=== PATIENT | female | born 1975 | race Caucasian/White ===

== ENCOUNTER 2020-12-25 18:53 | Day surgery (SDC) | payer BC, OTHER ==
[~2020-12-25] VITALS: Ht 162.6 cm; Wt 126.0 kg
[2020-12-25 19:18] VITALS: BP_SYST 135; BP_SYST 138; BP_DIAS 67; BP_DIAS 78; BP_DIAS 89
[2020-12-25 19:42] LABS: BASOPHILS % (AUTO) 0 % (0-10); EOSINOPHILS % (AUTO) 2 % (0-10); HEMATOCRIT 25 % (35-52); LYMPHOCYTES % (AUTO) 10 % (12-44); MEAN CORPUSCULAR HEMOGLOBIN 20 PG (25-34); MEAN CORPUSCULAR HGB CONC 28 G/DL (32-36); MEAN CORPUSCULAR VOLUME 71 FL (80-99); MEAN PLATELET VOLUME 9.1 FL (7.4-10.4); MONOCYTES % (AUTO) 5 % (0-12); NEUTROPHILS % (AUTO) 83 % (42-75); PLATELET COUNT 287 10^3/uL (130-400); WHITE BLOOD COUNT 11.3 10^3/uL (4.3-11.0)
[2020-12-25 19:43] LABS: EOSINOPHILS # (AUTO) 0.2 10^3/uL (0.0-0.3); LYMPHOCYTES # (AUTO) 1.1 X 10^3 (1.0-4.0); MONOCYTES # (AUTO) 0.6 X 10^3 (0.0-1.0); NEUTROPHILS # (AUTO) 9.4 X 10^3 (1.8-7.8)
[2020-12-25 19:44] LABS: HEMOGLOBIN 6.9 G/DL (11.5-16.0)
[2020-12-25 19:47] LABS: ALBUMIN 3.6 GM/DL (3.2-4.5); BILIRUBIN,TOTAL 0.4 MG/DL (0.1-1.0); CALCIUM 9.3 MG/DL (8.5-10.1); CREATININE SERUM 0.69 MG/DL (0.60-1.30); POTASSIUM 4.4 MMOL/L (3.6-5.0); TOTAL PROTEIN 6.4 GM/DL (6.4-8.2)
--- NOTE | 2020-12-25 19:53 | ED Syncope ---
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 Pt then states she vomited and also hit her head when she passed out. Pt denies loc and is alert and oriented on arrival Source of Information: Patient Exam Limitations: No Limitations History of Present Illness Date Seen by Provider: Dec 25, 2020 Time Seen by Provider: 19:05 Initial Comments Patient is a 45-year-old female who presents to the emergency department today with a chief complaint of a passing out spell. Patient states that she had gone swimming with her kids around 2:00 this afternoon and when she came home she had the urge to have a bowel movement. She said she had a little bit of an upset stomach. When she was getting up off of the toilet she became very lightheaded more nauseous and vomited and passed out hitting her head on the wall. Patient is unsure how long she was unconscious. She has not done this in years. She denies abdominal pain but states that she has a really "big hiatal hernia" and has had acid reflux for years. She is not currently on acid reducers and has not been on them for months. Patient states that her vomit did look like "coffee grounds". Patient denies any recent black or bloody stools. She tells me that she has a significantly narrowed esophagus and recently had dilation in [place] about 2 weeks ago. 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 Patient also endorses very heavy menstrual cycles. She is currently spotting and has been on her menstrual cycle the last week or so. She states she has them monthly. Last time she saw plant supervisor was about 6 or 7 years ago with the of her last child. No recent fevers chills, cough or congestion. She is not Covid vaccinated. All other review of systems reviewed and negative except as stated above. Timing/Prior Episodes: No Prior History Symptoms Prior to Episode: Lightheadedness, Nausea Precipitating Factors: Sitting Loss of Consciousness: Unsure Current Symptoms: Back to Normal Allergies and Home Medications Allergies Coded Allergies: No Known Drug Allergies (Unverified , 12/25/20) Home Medications Albuterol Sulfate 1 Puff Puff, 2 PUFF IH Q6H PRN for SHORTNESS OF BREATH, (Reported) Last Action: Reviewed Cetirizine HCl 10 Mg Tablet, 10 MG PO DAILY PRN for ALLERGY SYMPTOMS, (Reported) Last Action: Reviewed Cholecalciferol (Vitamin D3) 10 Mcg Tab.chew, 50 MCG PO DAILY, (Reported) TAKES 5 (10MCG) CHEWABLES DAILY Last Action: Reviewed Multivit-Min/Ascorbic/Herb 124 1 Each Effpowdpkt, 1 EACH PO DAILY, (Reported) Last Action: Reviewed Omeprazole 20 Mg Tab.rap.dr, 20 MG PO DAILY PRN for HEARTBURN, (Reported) Last Action: Reviewed Zinc Gluconate 30 Mg Tablet, 60 MG PO DAILY, (Reported) Last Action: Reviewed Patient Home Medication List Home Medication List Reviewed: Yes Review of Systems Constitutional: see HPI EENTM: no symptoms reported Respiratory: no symptoms reported Cardiovascular: no symptoms reported Gastrointestinal: nausea Genitourinary: no symptoms reported : No Musculoskeletal: no symptoms reported Skin: no symptoms reported Psychiatric/Neurological: No Symptoms Reported All Other Systems Reviewed Negative Unless Noted: Yes Past Hzggcaz-Hhqyey-Ycgswz Hx Patient Social History Tobacco Use?: No Use of E-Cig and/or Vaping dev: No Substance use?: No Alcohol Use?: No Pt feels they are or have been: No Physical Exam Vital Signs Vital Signs - First Documented 12/25/20 18:55 Temp 36.0 Pulse 97 Resp 18 B/P (MAP) 137/74 (95) Pulse Ox 100 O2 Delivery Room Air Capillary Refill : Less Than 3 Seconds Height, Weight, BMI Height: '" Weight: lbs. oz. kg; BMI Method: General Appearance: No Apparent Distress, WD/WN HEENT: PERRL/EOMI, Normal ENT Inspection Neck: Normal Inspection, Non Tender Cardiovascular: Regular Rate, Rhythm Respiratory: Lungs Clear, Normal Breath Sounds, No Accessory Muscle Use, No Respiratory Distress Gastrointestinal: Normal Bowel Sounds, Non Tender, Soft Extremities: Normal Inspection, Normal Range of Motion, Non Tender, No Calf Tenderness Neurologic/Psychiatric: Alert, Oriented x3, No Motor/Sensory Deficits, Normal Mood/Affect Cranial Nerves: PERRL Motor/Sensory: No Motor Deficit, No Sensory Deficit Skin: Normal Color, Warm/Dry Progress/Results/Core Measures Results/Orders Lab Results Laboratory Tests Test 12/25/20 19:07 8/3/21 20:58 Range/Units White Blood Count 11.3 H 4.3-11.0 10^3/uL Red Blood Count 3.47 L 4.35-5.85 10^6/uL Hemoglobin 6.9 *L 11.5-16.0 G/DL Hematocrit 25 L 35-52 % Mean Corpuscular Volume 71 L 80-99 FL Mean Corpuscular Hemoglobin 20 L 25-34 PG Mean Corpuscular Hemoglobin Concent 28 L 32-36 G/DL Red Cell Distribution Width 16.8 H 10.0-14.5 % Platelet Count 287 130-400 10^3/uL Mean Platelet Volume 9.1 7.4-10.4 FL Immature Granulocyte % (Auto) 0 % Neutrophils (%) (Auto) 83 H 42-75 % Lymphocytes (%) (Auto) 10 L 12-44 % Monocytes (%) (Auto) 5 0-12 % Eosinophils (%) (Auto) 2 0-10 % Basophils (%) (Auto) 0 0-10 % Neutrophils # (Auto) 9.4 H 1.8-7.8 X 10^3 Lymphocytes # (Auto) 1.1 1.0-4.0 X 10^3 Monocytes # (Auto) 0.6 0.0-1.0 X 10^3 Eosinophils # (Auto) 0.2 0.0-0.3 10^3/uL Basophils # (Auto) 0.0 0.0-0.1 10^3/uL Immature Granulocyte # (Auto) 0.0 0.0-0.1 10^3/uL Neutrophils % (Manual) 83 % Lymphocytes % (Manual) 9 % Monocytes % (Manual) 4 % Eosinophils % (Manual) 1 % Band Neutrophils 2 % Atypical Lymphocytes 1 % Smudge Cells SLIGHT Percent Immature Platelet Fraction 2.3 0.0-7.6 % Polychromasia SLIGHT Hypochromasia SLIGHT Poikilocytosis SLIGHT Anisocytosis SLIGHT Microcytosis SLIGHT Elliptocytes SLIGHT Absolute Reticulocyte Count 34 24-90 10e9/uL Percent Reticulocyte Count 3.39 H 0.50-2.40 % Sodium Level 135 135-145 MMOL/L Potassium Level 4.4 3.6-5.0 MMOL/L Chloride Level 104 98-107 MMOL/L Carbon Dioxide Level 22 21-32 MMOL/L Anion Gap 9 5-14 MMOL/L Blood Urea Nitrogen 12 7-18 MG/DL Creatinine 0.69 0.60-1.30 MG/DL Estimat Glomerular Filtration Rate 92 BUN/Creatinine Ratio 17 Glucose Level 112 H 70-105 MG/DL Calcium Level 9.3 8.5-10.1 MG/DL Corrected Calcium 9.6 8.5-10.1 MG/DL Total Bilirubin 0.4 0.1-1.0 MG/DL Aspartate Amino Transf (AST/SGOT) 13 5-34 U/L Alanine Aminotransferase (ALT/SGPT) 14 0-55 U/L Alkaline Phosphatase 74 40-136 U/L Total Protein 6.4 6.4-8.2 GM/DL Albumin 3.6 3.2-4.5 GM/DL SARS-CoV-2 RNA (RT-PCR) Not Detected Not Detecte Micro Results Microbiology 12/25/20 MRSA Screen - Final, Complete MRSA not isolated My Orders Orders - DELMER HASTINGS MD Pantoprazole Injection (Protonix Injecti (12/25/20 20:15) Type And Screen (12/25/20 20:21) Red Cells Leukocytes Reduced (12/25/20 20:21) Ed Iv/Invasive Line Start (12/25/20 20:43) Iron Tibc %Sat & Ferritin (12/25/20 20:45) Reticulocyte Count (12/25/20 20:45) Medications Given in ED Vital Signs/I&O 12/25/20 12/25/20 12/25/20 12/25/20 18:55 19:18 20:44 22:10 Temp 36.0 Pulse 97 88 97 103 120 Resp 18 16 B/P (MAP) 137/74 (95) 138/78 (98) 151/85 135/67 (89) 135/89 (104) Pulse Ox 100 100 97 O2 Delivery Room Air Room Air Room Air Blood Pressure Mean: 104 Progress Progress Note : Time: 20:07 Progress Note Hemoccult positive on digital rectal exam Initial ECG Impression Date: Dec 25, 2020 Initial ECG Impression Time: 19:05 Initial ECG Rate: 90 Initial ECG Rhythm: Normal Sinus Initial ECG Intervals: Normal Initial ECG Impression: Normal Departure Communication (Admissions) Time/Spoke to Admitting Phy: 20:[address] Merino who accepts the patient for admission Time/Spoke to Consulting Phy: 20:[address] Nassar who recommends Protonix 40 mg IV twice daily clear liquids for now and then n.p.o. after midnight for probable EGD tomorrow afternoon. He did not recommend colon prep at this time. Impression Primary Impression: Syncope Qualified Codes: R55 - Syncope and collapse Additional Impressions: Anemia Qualified Codes: D64.9 - Anemia, unspecified GIB (gastrointestinal bleeding) Qualified Codes: K92.2 - Gastrointestinal hemorrhage, unspecified Disposition: ADMITTED INPATIENT Condition: Stable Admissions Decision to Admit Reason: Admit from ER (General) Decision to Admit/Date: Dec 25, 2020 Time/Decision to Admit Time: 20:08 Departure-Patient Inst. Referrals: LAURENT MAGANA MD (PCP/Family) Primary Care Physician DELMER HASTINGS MD Dec 25, 2020 19:53
[2020-12-25 20:10] LABS: ATYPICAL LYMPHOCYTES 1 %; BAND NEUTROPHILS 2 %; EOSINOPHILS % (MANUAL) 1 %; LYMPHOCYTES % (MANUAL) 9 %; MONOCYTES % (MANUAL) 4 %; NEUTROPHILS % (MANUAL) 83 %
[2020-12-25 20:11] LABS: ANISOCYTOSIS SLIGHT; ELLIPT/OVALOCYTES SLIGHT; HYPOCHROMASIA SLIGHT; MICROCYTOSIS SLIGHT; POIKILOCYTOSIS SLIGHT; POLYCHROMASIA SLIGHT; SMUDGE CELLS SLIGHT
[2020-12-25] MEDS ORDERED: PANTOPRAZOLE 40 MG (PROTONIX) VIAL IV ONE (20:15)
[2020-12-25 20:55] LABS: RETICULOCYTE % 3.39 % (0.50-2.40)
[2020-12-25] MEDS: NS IV 1000 ML 1,000 ML IV SCH (22:48)
[2020-12-25] MEDS ORDERED: NS IV 500 ML 500 ML IV SCH (23:15)
[2020-12-26] VITALS (16 sets, daily range): BP systolic 108–133; BP diastolic 56–79
[2020-12-26 05:43] LABS: BASOPHILS % (AUTO) 0 % (0-10); EOSINOPHILS # (AUTO) 0.2 10^3/uL (0.0-0.3); EOSINOPHILS % (AUTO) 2 % (0-10); HEMATOCRIT 24 % (35-52); LYMPHOCYTES # (AUTO) 1.6 10^3/uL (1.0-4.0); LYMPHOCYTES % (AUTO) 18 % (12-44); MEAN CORPUSCULAR HEMOGLOBIN 21 pg (25-34); MEAN CORPUSCULAR HGB CONC 29 g/dL (32-36); MEAN CORPUSCULAR VOLUME 73 fL (80-99); MEAN PLATELET VOLUME 9.5 fL (9.0-12.2); MONOCYTES # (AUTO) 0.5 10^3/uL (0.0-1.0); MONOCYTES % (AUTO) 5 % (0-12); NEUTROPHILS # (AUTO) 6.5 10^3/uL (1.8-7.8); NEUTROPHILS % (AUTO) 74 % (42-75); PLATELET COUNT 229 10^3/uL (130-400); WHITE BLOOD COUNT 8.8 10^3/uL (4.3-11.0)
[2020-12-26 05:53] LABS: HEMOGLOBIN 6.8 g/dL (11.5-16.0)
[2020-12-26] MEDS: NS IV 1000 ML 1,000 ML IV SCH ×3 (06:30→20:27)
--- NOTE | 2020-12-26 06:43 | History & Physical-Surgical ---
MALLY MONTELONGO 12/26/20 0643: History of Present Illness History of Present Illness Reason for visit/HPI 45 year old female presented to ER after episode of syncope. Patient states she went swimming with her family earlier in the day. Then when at home, leaned forward to get up and suddenly felt hot, dizzy, with a wave of nausea. Patient then states she woke up with emesis next to her. Patient states emesis had coffee ground appearance. Patient believes she was diagnosed with Elena's esophagus 11 years ago. She had esophageal dilation done 2 weeks ago. This morning she is feeling better, with no N/V, pain, or abnormal bowel movements. Date of Admission Dec 25, 2020 at 22:10 Date Seen by a Provider: Dec 26, 2020 Time Seen by a Provider: 06:37 I consulted on this patient on 12/26/20 06:35 Attending Physician China Merino MD Admitting Physician Gentry Max MD Consult Allergies and Home Medications Allergies Coded Allergies: No Known Drug Allergies (Unverified , 12/25/20) Home Medications Albuterol Sulfate 1 Puff Puff, 2 PUFF IH Q6H PRN for SHORTNESS OF BREATH, (Reported) Last Action: New Order Cetirizine HCl 10 Mg Tablet, 10 MG PO DAILY PRN for ALLERGY SYMPTOMS, (Reported) Last Action: New Order Cholecalciferol (Vitamin D3) 10 Mcg Tab.chew, 50 MCG PO DAILY, (Reported) TAKES 5 (10MCG) CHEWABLES DAILY Last Action: New Order Multivit-Min/Ascorbic/Herb 124 1 Each Effpowdpkt, 1 EACH PO DAILY, (Reported) Last Action: New Order Omeprazole 20 Mg Tab.rap.dr, 20 MG PO DAILY PRN for HEARTBURN, (Reported) Last Action: New Order Past Xhssehi-Lcjdet-Oazjrl Hx Patient Social History Tobacco Use?: No Smoking Status: Never a Smoker Smokeless Tobacco Frequency: Never a User Use of E-Cig and/or Vaping dev: No Substance use?: No Alcohol Use?: No Pt feels they are or have been: No Immunizations Up To Date Tetanus Booster (TDap): Unknown Current Status status: No Advance Directives: No Communicates: Verbally Primary Language: Colombian Preferred Spoken Language: Colombian Is interpretation needed?: No Implanted or Applied Medical D: None Past Medical History Elena's Esophagus (patient believes she was dx'd 10 years ago) Review of Systems Constitutional: No chills, No fever Respiratory: No cough, No dyspnea on exertion, No short of breath Gastrointestinal: RUQ (pt states was tender this morning; was not tender to palpation); No LUQ, No RLQ, No LLQ, No nausea, No vomiting Genitourinary: No decreased output, No dysuria Physical Exam Vital Signs Vital Signs - First Documented 12/25/20 18:55 Temp 36.0 Pulse 97 Resp 18 B/P (MAP) 137/74 (95) Pulse Ox 100 O2 Delivery Room Air Capillary Refill : Less Than 3 Seconds Height, Weight, BMI Height: '" Weight: lbs. oz. kg; 47.65 BMI Method: General Appearance: No Apparent Distress, WD/WN HEENT: PERRL/EOMI Respiratory: Lungs Clear, Normal Breath Sounds, No Accessory Muscle Use, No R espiratory Distress Cardiovascular: Regular Rate, Rhythm, No Gallop, No JVD, No Murmur, Normal Peripheral Pulses Gastrointestinal: Normal Bowel Sounds, Non Tender, Soft Extremity: Normal Capillary Refill, Normal Inspection Neurologic/Psychiatric: Alert, Oriented x3 Skin: Normal Color, Warm/Dry Data Review Labs Laboratory Tests 12/25/20 19:07: White Blood Count 11.3H, Red Blood Count 3.47L, Hemoglobin 6.9*L, Hematocrit 25L , Mean Corpuscular Volume 71L, Mean Corpuscular Hemoglobin 20L, Mean Corpuscular Hemoglobin Concent 28L, Red Cell Distribution Width 16.8H, Platelet Count 287, Mean Platelet Volume 9.1, Immature Granulocyte % (Auto) 0, Neutrophils (%) (Auto) 83H, Lymphocytes (%) (Auto) 10L, Monocytes (%) (Auto) 5, Eosinophils (%) (Auto) 2, Basophils (%) (Auto) 0, Neutrophils # (Auto) 9.4H, Lymphocytes # (Auto) 1.1, Monocytes # (Auto) 0.6, Eosinophils # (Auto) 0.2, Basophils # (Auto) 0.0, Immature Granulocyte # (Auto) 0.0, Neutrophils % (Manual) 83, Lymphocytes % (Manual) 9, Monocytes % (Manual) 4, Eosinophils % (Manual) 1, Band Neutrophils 2, Atypical Lymphocytes 1, Smudge Cells SLIGHT, Percent Immature Platelet Fraction 2.3, Polychromasia SLIGHT, Hypochromasia SLIGHT, Poikilocytosis SLIGHT, Anisocytosis SLIGHT, Microcytosis SLIGHT, Elliptocytes SLIGHT, Absolute Reticulocyte Count 34, Percent Reticulocyte Count 3.39H, Sodium Level 135, Potassium Level 4.4, Chloride Level 104, Carbon Dioxide Level 22, Anion Gap 9, Blood Urea Nitrogen 12, Creatinine 0.69, Estimat Glomerular Filtration Rate 92, BUN/Creatinine Ratio 17, Glucose Level 112H, Calcium Level 9.3, Corrected Calcium 9.6, Total Bilirubin 0.4, Aspartate Amino Transf (AST/SGOT) 13, Alanine Aminotransferase (ALT/SGPT) 14, Alkaline Phosphatase 74, Total Protein 6.4, Albumin 3.6 12/25/20 20:58: SARS-CoV-2 RNA (RT-PCR) Not Detected 12/25/20 23:05: 12/26/20 05:26: White Blood Count 8.8, Red Blood Count 3.26L, Hemoglobin 6.8*L, Hematocrit 24L, Mean Corpuscular Volume 73L, Mean Corpuscular Hemoglobin 21L, Mean Corpuscular Hemoglobin Concent 29L, Red Cell Distribution Width 19.0H, Platelet Count 229, Mean Platelet Volume 9.5, Immature Granulocyte % (Auto) 1, Neutrophils (%) (Auto) 74, Lymphocytes (%) (Auto) 18, Monocytes (%) (Auto) 5, Eosinophils (%) (Auto) 2, Basophils (%) (Auto) 0, Neutrophils # (Auto) 6.5, Lymphocytes # (Auto) 1.6, Monocytes # (Auto) 0.5, Eosinophils # (Auto) 0.2, Basophils # (Auto) 0.0, Immature Granulocyte # (Auto) 0.1 Assessment/Plan Assessment/Plan Assessment/Plan Assessment: Anemia Hematemesis Esophageal stricture with recent dilation Plan: EGD NPO Protonix Transfuse Blood PRN follow Hgb 12/26/20 1152: Allergies and Home Medications Allergies Coded Allergies: No Known Drug Allergies (Unverified , 12/25/20) Home Medications Albuterol Sulfate 1 Puff Puff, 2 PUFF IH Q6H PRN for SHORTNESS OF BREATH, (Reported) Last Action: New Order Cetirizine HCl 10 Mg Tablet, 10 MG PO DAILY PRN for ALLERGY SYMPTOMS, (Reported) Last Action: New Order Cholecalciferol (Vitamin D3) 10 Mcg Tab.chew, 50 MCG PO DAILY, (Reported) TAKES 5 (10MCG) CHEWABLES DAILY Last Action: New Order Multivit-Min/Ascorbic/Herb 124 1 Each Effpowdpkt, 1 EACH PO DAILY, (Reported) Last Action: New Order Omeprazole 20 Mg Tab.rap.dr, 20 MG PO DAILY PRN for HEARTBURN, (Reported) Last Action: New Order MALLY MONTELONGO Dec 26, 2020 06:43 ALEISHAIAN Dinorah Dec 26, 2020 11:52
[2020-12-26] MEDS ORDERED: MIDAZOLAM 2 MG/2 ML (VERSED) VIAL ONE (07:26)
[2020-12-26] MEDS ORDERED: proPOfol 200 MG/20 ML (DIPRIVAN) VIAL IV ONE (07:26)
--- NOTE | 2020-12-26 07:33 | Consultation - Surgery ---
MALLY MONTELONGO 12/26/20 0733: History of Present Illness History of Present Illness Patient Consulted On(nory/time) 12/26/20 07:30 Date Seen by Provider: Dec 26, 2020 Time Seen by Provider: 07:30 History of Present Illness 45 year old female presented to ER after episode of syncope. Patient states she went swimming with her family earlier in the day. Then when at home, leaned forward to get up and suddenly felt hot, dizzy, with a wave of nausea. Patient then states she woke up with emesis next to her. Patient states emesis had coffee ground appearance. Patient believes she was diagnosed with Elena's esophagus 11 years ago. She had esophageal dilation done 2 weeks ago. This morning she is feeling better, with no N/V, pain, or abnormal bowel movements. Allergies and Home Medications Allergies Coded Allergies: No Known Drug Allergies (Unverified , 12/25/20) Home Medications Albuterol Sulfate 1 Puff Puff, 2 PUFF IH Q6H PRN for SHORTNESS OF BREATH, (Reported) Last Action: Reviewed Cetirizine HCl 10 Mg Tablet, 10 MG PO DAILY PRN for ALLERGY SYMPTOMS, (Reported) Last Action: Reviewed Cholecalciferol (Vitamin D3) 10 Mcg Tab.chew, 50 MCG PO DAILY, (Reported) TAKES 5 (10MCG) CHEWABLES DAILY Last Action: Reviewed Multivit-Min/Ascorbic/Herb 124 1 Each Effpowdpkt, 1 EACH PO DAILY, (Reported) Last Action: Reviewed Omeprazole 20 Mg Tab.rap.dr, 20 MG PO DAILY PRN for HEARTBURN, (Reported) Last Action: Reviewed Zinc Gluconate 30 Mg Tablet, 60 MG PO DAILY, (Reported) Last Action: Reviewed Past Qlclnpq-Lunpca-Vnmtwv Hx Patient Social History Smoking Status: Never a Smoker Alcohol Use?: No Have you traveled recently?: No Gastrointestinal Gastrointestinal Disorders: Elena's Esophagus Review of Systems-General Constitutional: No chills, No dizziness, No fever EENTM: No blurred vision Respiratory: No cough, No dyspnea on exertion, No short of breath Cardiovascular: No chest pain, No edema Gastrointestinal: No RUQ (pt stated was tender earlier in the morning, not tender to palpation), No LUQ, No RLQ, No LLQ Physical Exam-General Problems Physical Exam Vital Signs Vital Signs - First Documented 12/25/20 18:55 Temp 36.0 Pulse 97 Resp 18 B/P (MAP) 137/74 (95) Pulse Ox 100 O2 Delivery Room Air Capillary Refill : Less Than 3 Seconds General Appearance: WD/WN, no apparent distress HEENT: PERRL/EOMI Respiratory: lungs clear, normal breath sounds, no respiratory distress, no accessory muscle use Cardiovascular: regular rate, rhythm, no edema, no murmur Gastrointestinal: normal bowel sounds, non tender, soft Neurologic/Psychiatric: alert, oriented x 3 Skin: normal color, warm/dry Data Review Labs Laboratory Tests 12/25/20 19:07: White Blood Count 11.3H, Red Blood Count 3.47L, Hemoglobin 6.9*L, Hematocrit 25L , Mean Corpuscular Volume 71L, Mean Corpuscular Hemoglobin 20L, Mean Corpuscular Hemoglobin Concent 28L, Red Cell Distribution Width 16.8H, Platelet Count 287, M cesar Platelet Volume 9.1, Immature Granulocyte % (Auto) 0, Neutrophils (%) (Auto) 83H, Lymphocytes (%) (Auto) 10L, Monocytes (%) (Auto) 5, Eosinophils (%) (Auto) 2, Basophils (%) (Auto) 0, Neutrophils # (Auto) 9.4H, Lymphocytes # (Auto) 1.1, Monocytes # (Auto) 0.6, Eosinophils # (Auto) 0.2, Basophils # (Auto) 0.0, Immatu re Granulocyte # (Auto) 0.0, Neutrophils % (Manual) 83, Lymphocytes % (Manual) 9, Monocytes % (Manual) 4, Eosinophils % (Manual) 1, Band Neutrophils 2, Atypical Lymphocytes 1, Smudge Cells SLIGHT, Percent Immature Platelet Fraction 2.3, Polychromasia SLIGHT, Hypochromasia SLIGHT, Poikilocytosis SLIGHT, Anisocytosis SLIGHT, Microcytosis SLIGHT, Elliptocytes SLIGHT, Absolute Reticulo cyte Count 34, Percent Reticulocyte Count 3.39H, Sodium Level 135, Potassium Level 4.4, Chloride Level 104, Carbon Dioxide Level 22, Anion Gap 9, Blood Urea Nitrogen 12, Creatinine 0.69, Estimat Glomerular Filtration Rate 92, BUN/Creat inine Ratio 17, Glucose Level 112H, Calcium Level 9.3, Corrected Calcium 9.6, Total Bilirubin 0.4, Aspartate Amino Transf (AST/SGOT) 13, Alanine Aminotransferase (ALT/SGPT) 14, Alkaline Phosphatase 74, Total Protein 6.4, Albumin 3.6 12/25/20 20:58: SARS-CoV-2 RNA (RT-PCR) Not Detected 12/25/20 23:05: 12/26/20 05:26: White Blood Count 8.8, Red Blood Count 3.26L, Hemoglobin 6.8*L, Hematocrit 24L, Mean Corpuscular Volume 73L, Mean Corpuscular Hemoglobin 21L, Mean Corpuscular Hemoglobin Concent 29L, Red Cell Distribution Width 19.0H, Platelet Count 229, Mean Platelet Volume 9.5, Immature Granulocyte % (Auto) 1, Neutrophils (%) (Auto) 74, Lymphocytes (%) (Auto) 18, Monocytes (%) (Auto) 5, Eosinophils (%) (Auto) 2, Basophils (%) (Auto) 0, Neutrophils # (Auto) 6.5, Lymphocytes # (Auto) 1.6, Monocytes # (Auto) 0.5, Eosinophils # (Auto) 0.2, Basophils # (Auto) 0.0, Immature Granulocyte # (Auto) 0.1 Assessment/Plan Assessment/Plan Assessment/Plan Assessment: Anemia Hematemesis Esophageal stricture with recent dilation Plan: EGD NPO Protonix Transfuse Blood PRN follow Hgb JIM NASSAR DO 12/26/202155: History of Present Illness History of Present Illness History of Present Illness Patient 45-year-old female who had episode of syncope. Patient had been swimming with her family. She began not feeling well. Having some nausea as well. She seems of may be passed out. She woke up with coffee-ground emesis next to her. She had EGD with esophageal dilatation 2 weeks ago. She has known hiatal hernia. She supposed take omeprazole but she does not take it due to financial issues. Patient has no other complaints at this time. She got transfused 1 unit of packed red blood cells and her hemoglobin went from 6.9- 6.8. Patient with no other complaints at this time denies any nausea vomiting fever sweats chills shortness of breath or chest pain. Allergies and Home Medications Allergies Coded Allergies: No Known Drug Allergies (Unverified , 12/25/20) Home Medications Albuterol Sulfate 1 Puff Puff, 2 PUFF IH Q6H PRN for SHORTNESS OF BREATH, (Reported) Last Action: Reviewed Cetirizine HCl 10 Mg Tablet, 10 MG PO DAILY PRN for ALLERGY SYMPTOMS, (Reported) Last Action: Reviewed Cholecalciferol (Vitamin D3) 10 Mcg Tab.chew, 50 MCG PO DAILY, (Reported) TAKES 5 (10MCG) CHEWABLES DAILY Last Action: Reviewed Multivit-Min/Ascorbic/Herb 124 1 Each Effpowdpkt, 1 EACH PO DAILY, (Reported) Last Action: Reviewed Omeprazole 20 Mg Tab.rap.dr, 20 MG PO DAILY PRN for HEARTBURN, (Reported) Last Action: Reviewed Zinc Gluconate 30 Mg Tablet, 60 MG PO DAILY, (Reported) Last Action: Reviewed Patient Home Medication List Home Medication List Reviewed: Yes Past Uukwhqf-Slvhoo-Owddbx Hx Reviewed Nursing Assessment Reviewed/Agree w Nursing PMH: Yes Family Medical History Significant Family History: No Pertinent Family Hx Review of Systems-General Constitutional: No chills, No dizziness, No fever EENTM: No double vision Respiratory: No cough, No dyspnea on exertion, No short of breath Cardiovascular: No chest pain, No edema Gastrointestinal: No abdominal pain; nausea, vomiting Genitourinary: No decreased output, No discharge Musculoskeletal: No back pain, No joint pain Skin: No change in color, No change in hair/nails Psychiatric/Neurological: Denies Depressed, Denies Emotional Problems All Other Systems Reviewed Negative Unless Noted: Yes (Negative excepted noted.) Physical Exam-General Problems Physical Exam General Appearance: WD/WN, no apparent distress HEENT: PERRL/EOMI, normal ENT inspection Neck: non-tender Respiratory: chest non-tender, no respiratory distress, no accessory muscle use Cardiovascular: regular rate, rhythm, no edema, no JVD Gastrointestinal: non tender, soft, no organomegaly Back: normal inspection, no CVA tenderness, no vertebral tenderness Extremities: normal range of motion, non-tender, normal inspection Neurologic/Psychiatric: alert, normal mood/affect, oriented x 3 Skin: warm/dry, pallor Lymphatic: no adenopathy Assessment/Plan Assessment/Plan Assessment/Plan Anemia secondary to likely upper gi bleed Hematemesis Esophageal stricture with recent dilation Plan: EGD NPO Protonix Transfuse prbc as needed follow Hgb Supervisory-Addendum Brief Verification & Attestation Participated in pt care: history, MDM, physical Personally performed: exam, history, MDM, supervision of care Care discussed with: Medical Student Procedures: n/a Results interpretation: Verified all documentation Verification and Attestation of Medical Student E/M Service A medical student performed and documented this service in my presence. I reviewed and verified all information documented by the medical student and made modifications to such information, when appropriate. I personally performed the physical exam and medical decision making. Jim Nassar, Dec 26, 2020,07:25 MALLY MONTELONGO Dec 26, 2020 07:33 JIM NASSAR DO Dec 26, 2020 21:56
[2020-12-26] MEDS ORDERED: HURRICAINE EXT TUBE (BENZOCAINE) ONE (07:36)
[2020-12-26] MEDS ORDERED: ONDANSETRON 4 MG/2 ML (SDV) Z0FRAN ONE (07:44)
[2020-12-26] MEDS ORDERED: NS IV 1000 ML 1,000 ML IV ONE (08:00)
[2020-12-26] MEDS ORDERED: HURRICAINE EXT TUBE (BENZOCAINE) XX ONE (08:00)
[2020-12-26] MEDS: PANTOPRAZOLE 40 MG (PROTONIX) VIAL IV SCH ×2 (09:11→20:27)
[2020-12-26] MEDS ORDERED: CETI10TA17 PO (11:51)
[2020-12-26] MEDS ORDERED: OMEP-401 PO (11:51)
[2020-12-26] MEDS ORDERED: [UNRECOGNIZED DRUG - CODE] PO (11:51)
[2020-12-26] MEDS ORDERED: ZINC30TA2 PO (11:51)
[2020-12-26] MEDS ORDERED: CHOL400T3 PO (11:51)
[2020-12-26] MEDS ORDERED: RT-ALBUINH IH (11:51)
--- NOTE | 2020-12-26 11:52 | Anesthesia-General Post-Op ---
MAC Patient Condition Mental Status/LOC: Same as Preop Cardiovascular: Satisfactory Nausea/Vomiting: Absent Respiratory: Satisfactory Pain: Controlled Complications: Absent Post Op Complications Complications None Follow Up Care/Instructions Patient Instructions None needed. Anesthesiology Discharge Order Discharge Order Patient is doing well, no complaints, stable vital signs, no apparent adverse anesthesia problems. No complications reported per nursing. EVAN GRAHAM CRNA Dec 26, 2020 11:52
--- NOTE | 2020-12-26 21:03 | History & Physical ---
HPI History of Present Illness: 45 yo F that presented with episode of intense dizziness. States that she did not lose consciousness. She has had a significant GI history and was diagnosed with maldonado's esophagus several years ago and has had many EGDs. States that she has never had colonoscopy. Prior to event she was swimming with her family for about 2 hrs. States that she has been well hydrated. She was found to have Hgb 6.8. She states that she does have heavy periods and is on OCP to help control. She otherwise has not had any workup for vaginal bleeding. Denies any female family h/o bleeding disorders or hysterectomies. Denies any chest pain or palpitations during or after episode. Source: patient Exam Limitations: no limitations Date seen by provider: Dec 26, 2020 Time Seen by Provider: 11:00 Attending Physician China Merino MD PCP Self,Gentry BAILEY Consult Date of Admission Dec 25, 2020 at 22:10 Home Medications Home Medications Reviewed patient Home Medication Reconciliation performed by pharmacy medication reconciliations flight test data acquisition technician and/or nursing. Patients Allergies have been reviewed. Allergies Coded Allergies: No Known Drug Allergies (Unverified , 12/25/20) SYL-Fwebhs-Ombtoz Hx Patient Social History Smoking Status: Never a Smoker Alcohol Use?: No Have you traveled recently?: No Past Medical History Maldonado's Esophagus Esophageal stricture s/p dilation Obesity Family Medical History Significant Family History: No Pertinent Family Hx Review of Systems ([facility]) Constitutional: dizziness, malaise, weakness EENTM: no symptoms reported; No mouth pain, No nose congestion, No nose pain Respiratory: no symptoms reported; No cough, No dyspnea on exertion, No orthopnea, No short of breath Cardiovascular: no symptoms reported; No chest pain, No edema, No palpitations Gastrointestinal: no symptoms reported; No abdominal pain, No constipation, No diarrhea, No nausea, No vomiting Genitourinary: no symptoms reported; No dysuria, No frequency : No Musculoskeletal: no symptoms reported; No back pain, No joint pain, No muscle pain Skin: no symptoms reported; No lesions, No rash Psychiatric/Neurological: No Symptoms Reported Reviewed Test Results Reviewed Test Results Lab Laboratory Tests Test 12/25/20 23:05 12/26/20 05:26 12/26/20 08:52 12/26/20 12:30 Range/Units White Blood Count 8.8 4.3-11.0 10^3/uL Red Blood Count 3.26 L 3.80-5.11 10^6/uL Hemoglobin 6.8 *L 11.5-16.0 g/dL Hematocrit 24 L 35-52 % Mean Corpuscular Volume 73 L 80-99 fL Mean Corpuscular Hemoglobin 21 L 25-34 pg Mean Corpuscular Hemoglobin Concent 29 L 32-36 g/dL Red Cell Distribution Width 19.0 H 10.0-14.5 % Platelet Count 229 130-400 10^3/uL Mean Platelet Volume 9.5 9.0-12.2 fL Immature Granulocyte % (Auto) 1 % Neutrophils (%) (Auto) 74 42-75 % Lymphocytes (%) (Auto) 18 12-44 % Monocytes (%) (Auto) 5 0-12 % Eosinophils (%) (Auto) 2 0-10 % Basophils (%) (Auto) 0 0-10 % Neutrophils # (Auto) 6.5 1.8-7.8 10^3/uL Lymphocytes # (Auto) 1.6 1.0-4.0 10^3/uL Monocytes # (Auto) 0.5 0.0-1.0 10^3/uL Eosinophils # (Auto) 0.2 0.0-0.3 10^3/uL Basophils # (Auto) 0.0 0.0-0.1 10^3/uL Immature Granulocyte # (Auto) 0.1 0.0-0.1 10^3/uL Serum Test, Qualitative NEGATIVE NEGATIVE Lab Scanned Report Transfusion Reaction Form [id number] Physical Exam-([facility]) Physical Exam Vital Signs VS - Last 72 Hours, by Label 12/25/20 12/25/20 12/25/20 12/25/20 18:55 19:18 20:44 22:10 Temp 36.0 Pulse 97 88 97 103 120 Resp 18 16 B/P (MAP) 137/74 (95) 138/78 (98) 151/85 135/67 (89) 135/89 (104) Pulse Ox 100 100 97 O2 Delivery Room Air Room Air Room Air 12/26/20 12/26/20 12/26/20 12/26/20 00:20 00:33 00:41 02:37 Temp 36.4 36.4 36.3 36.1 Pulse 101 90 96 84 Resp 20 20 18 18 B/P (MAP) 108/56 108/56 (73) 117/56 118/59 Pulse Ox 97 97 99 97 O2 Delivery Room Air Room Air Room Air Room Air 12/26/20 12/26/20 12/26/20 12/26/20 04:12 06:15 06:36 07:40 Temp 36.7 36.4 36.6 Pulse 95 93 88 100 Resp 20 20 18 16 B/P (MAP) 119/57 (77) 126/62 120/76 Pulse Ox 97 97 98 100 O2 Delivery Room Air Room Air Room Air OxyMask O2 Flow Rate 8 12/26/20 12/26/20 12/26/20 12/26/20 07:45 07:50 07:55 08:00 Pulse 97 89 86 81 Resp 16 16 16 16 Pulse Ox 100 100 100 100 O2 Delivery OxyMask OxyMask OxyMask Room Air O2 Flow Rate 8 6 4 12/26/20 12/26/20 12/26/20 12/26/20 08:00 08:27 10:53 11:18 Temp 35.2 35.5 Pulse 84 79 Resp 20 20 B/P (MAP) 112/76 (88) 112/79 (90) Pulse Ox 98 98 98 99 O2 Delivery Room Air Room Air Room Air Room Air 12/26/20 12/26/20 15:20 20:15 Temp 36.4 36.7 Pulse 82 88 Resp 16 16 B/P (MAP) 118/63 (81) 128/74 (92) Pulse Ox 98 97 O2 Delivery Room Air Room Air Capillary Refill : Less Than 3 Seconds General Appearance: WD/WN, no apparent distress HEENT: PERRL/EOMI Neck: non-tender, full range of motion, supple Respiratory: chest non-tender, lungs clear, normal breath sounds, no respiratory distress, no accessory muscle use Cardiovascular: normal peripheral pulses, regular rate, rhythm, no edema, no murmur Gastrointestinal: normal bowel sounds, non tender, soft, no organomegaly Back: no CVA tenderness, no vertebral tenderness Extremities: normal range of motion, non-tender, normal inspection, no pedal edema, no calf tenderness, normal capillary refill Neurologic/Psychiatric: repossession agent II-XII nml as tested, no motor/sensory deficits, alert, normal mood/affect, oriented x 3 Skin: normal color, warm/dry Lymphatic: no adenopathy Assessment/Plan Assessment/Plan Admission Status: Observation (1) Syncope Status: Acute Assessment & Plan: - Likely 2/2 to severe anemia, has not had any recurrent episodes since admission Qualifiers: Qualified Codes: R55 - Syncope and collapse (2) GIB (gastrointestinal bleeding) Status: Acute Assessment & Plan: - EGD today, Dr Nassar consulted, appreciate recommendations, will discuss with him if he is going to due colonoscopy now or set up as outpatient Qualifiers: Qualified Codes: K92.2 - Gastrointestinal hemorrhage, unspecified (3) Microcytic anemia Status: Acute Assessment & Plan: - Iron studies pending (4) Menorrhagia Status: Chronic Assessment & Plan: - Recommend WWE as outpatient, patient states that she has not had a pelvic exam with pap for over 10 years Qualifiers: Qualified Codes: N92.0 - Excessive and frequent menstruation with regular cycle (5) Obesity Status: Chronic Qualifiers: Qualified Codes: E66.01 - Morbid (severe) obesity due to excess calories; Z68.42 - Body mass index [BMI] 45.0-49.9, adult (6) DVT prophylaxis Status: Acute Assessment & Plan: - SCDs, no lovenox 2/2 to severe anemia Copy Copies To 1: GENTRY MAGANA MD, HOLLY R MD Dec 26, 2020 21:03
--- NOTE | 2020-12-26 21:58 | Progress Note-Post Operative ---
Post-Operative Progess Note Surgeon (s)/Steam Roller Operator (s) Surgeon JIM CASTORENA DO Steam Roller Operator: na Pre-Operative Diagnosis anemia, gi bleed Post-Operative Diagnosis hiatal hernia, juan ulcers, linear esophageal ulceration Procedure & Operative Findings Date of Procedure 12/26/20 Procedure Performed/Findings egd Anesthesia Type per field associate Estimated Blood Loss Estimated blood loss (mL): none Specimens/Packing Specimens Removed na JIM CASTORENA DO Dec 26, 2020 21:58
[2020-12-27] VITALS (7 sets, daily range): BP systolic 112–142; BP diastolic 63–87
--- NOTE | 2020-12-27 01:27 | OPERATIVE REPORT ---
DATE OF SERVICE: 12/26/2020 PREOPERATIVE DIAGNOSES: Anemia, gastrointestinal bleed. POSTOPERATIVE DIAGNOSES: Hiatal hernia, Juan Jose ulcers, linear esophageal ulceration. SURGEON: Jim Nassar DO ANESTHESIA: Per COMMISSARY WORKER. ESTIMATED BLOOD LOSS: None. COMPLICATIONS: None. INDICATIONS: The patient is a 45-year-old female who had syncopal episode and having coffee ground emesis. She was found to be anemic as well. She recently had dilatation 2 weeks ago for esophageal stricture. She has not been taking omeprazole as she is supposed to. The patient understands risks and benefits of procedure and wished to proceed with procedure. Consent was signed in the chart. DESCRIPTION OF PROCEDURE: The patient was taken to endoscopy suite, placed in left lateral recumbent position. Timeout was performed. Scope was inserted in mouth, down the esophagus, stomach and into the duodenum. There were no polyps, masses or ulcerations within the duodenum. Scope was slowly retracted back into the stomach, which had normal appearance. Scope was retroflexed noting a moderate sized hiatal hernia and also Juan Jose ulcerations. No active bleeding. I do appear to have been recently bleeding. Scope was returned to its normal position, slowly withdrawn to distal esophagus. GE junction had fairly normal appearance. Scope was continuously retracted back and seemed to be maybe an area where recently dilated, it appears to have a linear ulceration present. Scope was then continuously slowly retracted back until completely removed. No active bleeding visualized. Scope was retracted until completely removed. The patient tolerated procedure well without any complications. She was taken to recovery room in stable condition. RECOMMENDATIONS: The patient continued to be n.p.o. If hemoglobin stabilizes, we would start clear liquids. The patient on Protonix. We will add Carafate. Any change in condition, we would consider repeating. Job ID: [id number] DocumentID: [id number] Dictated Date: 12/26/2020 22:02:29 Reprographics Associate Date: 12/27/2020 01:27:17 Dictated By: JIM NASSAR DO
[2020-12-27] MEDS: NS IV 1000 ML 1,000 ML IV SCH ×4 (04:22→21:22)
[2020-12-27] MEDS: SUCRALFATE 1 GM (CARAFATE) TAB PO SCH ×4 (05:49→20:28)
[2020-12-27 06:14] LABS: BASOPHILS % (AUTO) 1 % (0-10); EOSINOPHILS # (AUTO) 0.2 10^3/uL (0.0-0.3); EOSINOPHILS % (AUTO) 3 % (0-10); HEMATOCRIT 25 % (35-52); HEMOGLOBIN 7.3 g/dL (11.5-16.0); LYMPHOCYTES # (AUTO) 1.6 10^3/uL (1.0-4.0); LYMPHOCYTES % (AUTO) 30 % (12-44); MEAN CORPUSCULAR HEMOGLOBIN 23 pg (25-34); MEAN CORPUSCULAR HGB CONC 29 g/dL (32-36); MEAN CORPUSCULAR VOLUME 78 fL (80-99); MEAN PLATELET VOLUME 9.6 fL (9.0-12.2); MONOCYTES # (AUTO) 0.3 10^3/uL (0.0-1.0); MONOCYTES % (AUTO) 6 % (0-12); NEUTROPHILS # (AUTO) 3.2 10^3/uL (1.8-7.8); NEUTROPHILS % (AUTO) 60 % (42-75); PLATELET COUNT 214 10^3/uL (130-400); WHITE BLOOD COUNT 5.2 10^3/uL (4.3-11.0)
[2020-12-27 06:30] LABS: ALBUMIN 3.2 GM/DL (3.2-4.5)
[2020-12-27 06:31] LABS: POTASSIUM 3.9 MMOL/L (3.6-5.0)
[2020-12-27 06:32] LABS: CALCIUM 8.6 MG/DL (8.5-10.1)
[2020-12-27 06:33] LABS: TOTAL PROTEIN 5.4 GM/DL (6.4-8.2)
[2020-12-27 06:35] LABS: BILIRUBIN,TOTAL 0.6 MG/DL (0.1-1.0)
[2020-12-27 06:36] LABS: CREATININE SERUM 0.75 MG/DL (0.60-1.30)
[2020-12-27] MEDS: PANTOPRAZOLE 40 MG (PROTONIX) VIAL IV SCH ×2 (09:04→20:28)
[2020-12-27] MEDS ORDERED: IRON SUCROSE 200 MG/10 ML (VENOFER) VIAL IV SCH (09:30)
--- NOTE | 2020-12-27 16:54 | Progress Note - Surgery ---
Subjective Date Seen by a Provider: Dec 27, 2020 Time Seen by a Provider: 16:49 Subjective/Events-last exam Patient states that she is doing well. Feeling better than yesterday. Patient hemoglobin up to 7.3. She is tolerating clear liquids so far today. She denies any nausea vomiting fever sweats chills shortness of breath or chest pain at this time. Objective Exam Vital Signs Date Time Temp Pulse Resp B/P (MAP) Pulse Ox O2 Delivery O2 Flow Rate FiO2 12/27/20 16:05 36.0 87 18 128/83 (98) 96 Room Air 12/27/20 11:32 35.8 86 18 127/82 (97) 95 Room Air 12/27/20 08:00 99 Room Air 12/27/20 07:30 35.4 77 18 117/78 (91) 99 Room Air 12/27/20 04:22 36.6 84 18 112/75 (87) 97 Room Air 12/27/20 00:12 37.4 82 18 129/63 (85) 99 Room Air 12/26/20 20:30 Room Air 12/26/20 20:15 36.7 88 16 128/74 (92) 97 Room Air I & O 12/27/20 07:00 Intake Total 1300 ml Output Total 925 ml Balance 375 ml Capillary Refill : Less Than 3 Seconds General Appearance: No Apparent Distress, WD/WN HEENT: PERRL/EOMI Neck: Normal Inspection, Non Tender Respiratory: Chest Non Tender, No Accessory Muscle Use, No Respiratory Distress Cardiovascular: Regular Rate, Rhythm, No JVD, Normal Peripheral Pulses Gastrointestinal: non tender, soft, no organomegaly Extremity: Normal Capillary Refill, Normal Inspection Neurologic/Psychiatric: Alert, Oriented x3 Skin: Normal Color, Warm/Dry Lymphatic: No Adenopathy Results Lab Laboratory Tests 12/27/20 05:47: White Blood Count 5.2, Red Blood Count 3.25L, Hemoglobin 7.3L, Hematocrit 25L, Mean Corpuscular Volume 78L, Mean Corpuscular Hemoglobin 23L, Mean Corpuscular Hemoglobin Concent 29L, Red Cell Distribution Width 20.1H, Platelet Count 214, Mean Platelet Volume 9.6, Immature Granulocyte % (Auto) 1, Neutrophils (%) (Auto) 60, Lymphocytes (%) (Auto) 30, Monocytes (%) (Auto) 6, Eosinophils (%) (A uto) 3, Basophils (%) (Auto) 1, Neutrophils # (Auto) 3.2, Lymphocytes # (Auto) 1.6, Monocytes # (Auto) 0.3, Eosinophils # (Auto) 0.2, Basophils # (Auto) 0.0, Immature Granulocyte # (Auto) 0.0, Sodium Level 141, Potassium Level 3.9, Chloride Level 113H, Carbon Dioxide Level 22, Anion Gap 6, Blood Urea Nitrogen 11, Creatinine 0.75, Estimat Glomerular Filtration Rate 83, BUN/Creatinine Ratio 15, Glucose Level 90, Calcium Level 8.6, Corrected Calcium 9.2, Total Bilirubin 0.6, Aspartate Amino Transf (AST/SGOT) 13, Alanine Aminotransferase (ALT/SGPT) 15, Alkaline Phosphatase 56, Total Protein 5.4L, Albumin 3.2 12/27/20 12:50: Lab Scanned Report Transfusion Reaction Form Microbiology 12/25/20 MRSA Screen - Final, Complete MRSA not isolated Assessment/Plan Assessment/Plan Assessment/Plan Anemia secondary to likely upper gi bleed Hematemesis Esophageal stricture with recent dilation Hiatal hernia Linear ulceration esophagus and Juan Jose ulcers Advance to clear liquids today Protonix Transfuse prbc as needed follow Hgb Will need outpatient follow-up for colonoscopy advance diet if able hemoglobin stable. discussed with patient need for compliance with her medications. JIM CASTORENA DO Dec 27, 2020 16:54
--- NOTE | 2020-12-27 21:29 | Progress Note ---
Subjective Subjective/Events-last exam Patient feeling much better. Will advance diet. Tolerating ambulation Review of Systems General: Malaise Pulmonary: No Dyspnea, No Cough Cardiovascular: No: Chest Pain, Palpitations, Edema Gastrointestinal: Abdominal Pain; No: Nausea, Vomiting, Diarrhea, Constipation Genitourinary: No Dysuria, No Frequency, No Incontinence Neurological: Weakness; No: Incoordination Objective Exam Last Set of Vital Signs Vital Signs Date Time Temp Pulse Resp B/P (MAP) Pulse Ox O2 Delivery O2 Flow Rate FiO2 12/27/20 19:40 35.9 90 18 128/87 (101) 99 Room Air 12/26/20 07:55 4 Capillary Refill : Less Than 3 Seconds I&O Intake and Output 12/27/20 00:00 Intake Total 200 ml Output Total 250 ml Balance -50 ml Intake Oral 0 ml IV Total 200 ml Output Urine Total 250 ml # Voids 6 General: Alert, Oriented X3, Cooperative, No Acute Distress HEENT: Mucous Memb Moist/Flushing Lungs: Clear to Auscultation, Normal Air Movement Heart: Regular Rate, No Murmurs Abdomen: Normal Bowel Sounds, Soft, No Tenderness, No Masses Extremities: No Edema, No Tenderness/Swelling Skin: No Rashes, No Breakdown Neuro: Normal Speech, Sensation Intact, Cranial Nerves 3-12 NL Psych/Mental Status: Mental Status NL, Mood NL Results/Procedures Lab Laboratory Tests 12/27/20 05:47: White Blood Count 5.2, Red Blood Count 3.25L, Hemoglobin 7.3L, Hematocrit 25L, Mean Corpuscular Volume 78L, Mean Corpuscular Hemoglobin 23L, Mean Corpuscular Hemoglobin Concent 29L, Red Cell Distribution Width 20.1H, Platelet Count 214, Mean Platelet Volume 9.6, Immature Granulocyte % (Auto) 1, Neutrophils (%) (Auto) 60, Lymphocytes (%) (Auto) 30, Monocytes (%) (Auto) 6, Eosinophils (%) (Auto) 3, Basophils (%) (Auto) 1, Neutrophils # (Auto) 3.2, Lymphocytes # (Auto) 1.6, Monocytes # (Auto) 0.3, Eosinophils # (Auto) 0.2, Basophils # (Auto) 0.0, Immature Granulocyte # (Auto) 0.0, Sodium Level 141, Potassium Level 3.9, Chloride Level 113H, Carbon Dioxide Level 22, Anion Gap 6, Blood Urea Nitrogen 11, Creatinine 0.75, Estimat Glomerular Filtration Rate 83, BUN/Creatinine Ratio 15, Glucose Level 90, Calcium Level 8.6, Corrected Calcium 9.2, Total Bilirubin 0.6, Aspartate Amino Transf (AST/SGOT) 13, Alanine Aminotransferase (ALT/SGPT) 15, Alkaline Phosphatase 56, Total Protein 5.4L, Albumin 3.2 12/27/20 12:50: Lab Scanned Report Transfusion Reaction Form Microbiology 12/25/20 MRSA Screen - Final, Complete MRSA not isolated Assessment/Plan Assessment/Plan (1) Syncope Status: Acute Assessment & Plan: - Likely 2/2 to severe anemia, has not had any recurrent episodes since admission 12/27: Doing well, no recurrent episodes Qualifiers: Qualified Codes: R55 - Syncope and collapse (2) GIB (gastrointestinal bleeding) Status: Acute Assessment & Plan: - EGD today, Dr Nassar consulted, appreciate recommendations, will discuss with him if he is going to due colonoscopy now or set up as outpatient 12/27: Esophageal strictures and linear ulcers, likely cause of anemia, continue PPI, will get outpatient colonoscopy Qualifiers: Qualified Codes: K92.2 - Gastrointestinal hemorrhage, unspecified (3) Microcytic anemia Status: Acute Assessment & Plan: - Iron studies pending 12/27: IV iron given today (4) Menorrhagia Status: Chronic Assessment & Plan: - Recommend WWE as outpatient, patient states that she has not had a pelvic exam with pap for over 10 years Qualifiers: Qualified Codes: N92.0 - Excessive and frequent menstruation with regular cycle (5) Obesity Status: Chronic Qualifiers: Qualified Codes: E66.01 - Morbid (severe) obesity due to excess calories; Z68.42 - Body mass index [BMI] 45.0-49.9, adult (6) DVT prophylaxis Status: Acute Assessment & Plan: - SCDs, no lovenox 2/2 to severe anemia TIM MERIDA MD Dec 27, 2020 21:29
[2020-12-28 03:23] VITALS: BP 121/79
[2020-12-28] MEDS: NS IV 1000 ML 1,000 ML IV SCH (05:09)
[2020-12-28] MEDS: SUCRALFATE 1 GM (CARAFATE) TAB PO SCH ×2 (05:12→11:08)
[2020-12-28 05:14] LABS: BASOPHILS % (AUTO) 0 % (0-10); EOSINOPHILS # (AUTO) 0.2 10^3/uL (0.0-0.3); EOSINOPHILS % (AUTO) 4 % (0-10); HEMATOCRIT 25 % (35-52); HEMOGLOBIN 7.2 g/dL (11.5-16.0); LYMPHOCYTES # (AUTO) 1.5 10^3/uL (1.0-4.0); LYMPHOCYTES % (AUTO) 25 % (12-44); MEAN CORPUSCULAR HEMOGLOBIN 22 pg (25-34); MEAN CORPUSCULAR HGB CONC 29 g/dL (32-36); MEAN CORPUSCULAR VOLUME 77 fL (80-99); MEAN PLATELET VOLUME 9.3 fL (9.0-12.2); MONOCYTES # (AUTO) 0.4 10^3/uL (0.0-1.0); MONOCYTES % (AUTO) 6 % (0-12); NEUTROPHILS # (AUTO) 3.6 10^3/uL (1.8-7.8); NEUTROPHILS % (AUTO) 63 % (42-75); PLATELET COUNT 221 10^3/uL (130-400); WHITE BLOOD COUNT 5.7 10^3/uL (4.3-11.0)
--- NOTE | 2020-12-28 06:53 | Progress Note - Surgery ---
MALLY MONTELONGO 12/28/20 0653: Subjective Date Seen by a Provider: Dec 28, 2020 Time Seen by a Provider: 06:48 Subjective/Events-last exam Patient feels pretty good today. Patient states she has no pain. No trouble urinating. Patient hasn't had a bowel movement. Hgb went from 7.3-7.2. No problems ambulating. Review of Systems General: No Chills, No Night Sweats Pulmonary: No Cough, No Other Gastrointestinal: No: Nausea, Vomiting, Abdominal Pain Genitourinary: No Dysuria Objective Exam Vital Signs Date Time Temp Pulse Resp B/P (MAP) Pulse Ox O2 Delivery O2 Flow Rate FiO2 12/28/20 03:23 36.6 74 18 121/79 (93) 97 Room Air 12/27/20 23:02 36.4 88 20 142/85 (104) 95 Room Air 12/27/20 20:30 Room Air 12/27/20 19:40 35.9 90 18 128/87 (101) 99 Room Air 12/27/20 16:05 36.0 87 18 128/83 (98) 96 Room Air 12/27/20 11:32 35.8 86 18 127/82 (97) 95 Room Air 12/27/20 08:00 99 Room Air 12/27/20 07:30 35.4 77 18 117/78 (91) 99 Room Air I & O 12/28/20 07:00 Intake Total 1422 ml Output Total 3750 ml Balance -2328 ml Capillary Refill : Less Than 3 Seconds General Appearance: No Apparent Distress, WD/WN HEENT: PERRL/EOMI, Normal ENT Inspection Neck: Normal Inspection, Non Tender Respiratory: Lungs Clear, Normal Breath Sounds, No Accessory Muscle Use, No Respiratory Distress Cardiovascular: Regular Rate, Rhythm Gastrointestinal: non tender, soft, no organomegaly Extremity: Normal Inspection, Normal Range of Motion, Non Tender, No Calf Tenderness Neurologic/Psychiatric: Alert, Oriented x3, No Motor/Sensory Deficits, Normal Mood/Affect Skin: Normal Color, Warm/Dry Lymphatic: No Adenopathy Results Lab Laboratory Tests 12/27/20 12:50: Lab Scanned Report Transfusion Reaction Form 12/28/20 05:04: White Blood Count 5.7, Red Blood Count 3.29L, Hemoglobin 7.2L, Hematocrit 25L, Mean Corpuscular Volume 77L, Mean Corpuscular Hemoglobin 22L, Mean Corpuscular Hemoglobin Concent 29L, Red Cell Distribution Width 20.8H, Platelet Count 221, Mean Platelet Volume 9.3, Immature Granulocyte % (Auto) 1, Neutrophils (%) (Auto) 63, Lymphocytes (%) (Auto) 25, Monocytes (%) (Auto) 6, Eosinophils (%) (Auto) 4, Basophils (%) (Auto) 0, Neutrophils # (Auto) 3.6, Lymphocytes # (Auto) 1.5, Monocytes # (Auto) 0.4, Eosinophils # (Auto) 0.2, Basophils # (Auto) 0.0, Immature Granulocyte # (Auto) 0.1 Microbiology 12/25/20 MRSA Screen - Final, Complete MRSA not isolated Assessment/Plan Assessment/Plan Assessment/Plan Anemia secondary to likely upper gi bleed Hematemesis Esophageal stricture with recent dilation Hiatal hernia Linear ulceration esophagus and Juan Jose ulcers Protonix Transfuse prbc as needed follow Hgb Will need outpatient follow-up for colonoscopy advance diet if able hemoglobin stable. discussed with patient need for compliance with her medications. JIM NASSAR DO 12/28/20 1336: Subjective Subjective/Events-last exam Patient feeling good today. She is tolerating diet. Her hemoglobin stable. She has no abdominal pain. No nausea or vomiting. Denies fever sweats chills shortness of breath or chest pain. Wanting to go home. Objective Exam General Appearance: No Apparent Distress, WD/WN HEENT: PERRL/EOMI, Normal ENT Inspection Neck: Normal Inspection, Non Tender Respiratory: Lungs Clear, Normal Breath Sounds, No Accessory Muscle Use, No Respiratory Distress Cardiovascular: Regular Rate, Rhythm Gastrointestinal: non tender, soft, no organomegaly Extremity: Normal Inspection, Normal Range of Motion, Non Tender, No Calf [place] Neurologic/Psychiatric: Alert, Oriented x3, No Motor/Sensory Deficits, Normal Mood/Affect Skin: Normal Color, Warm/Dry Lymphatic: No Adenopathy Assessment/Plan Assessment/Plan Assessment/Plan Anemia secondary to likely upper gi bleed Hematemesis Esophageal stricture with recent dilation Hiatal hernia Linear ulceration esophagus and Juan Jose ulcers Protonix Hgb stable advance diet. Will need outpatient follow-up for colonoscopy discussed with patient need for compliance with her medications. Supervisory-Addendum Brief Verification & Attestation Participated in pt care: history, MDM, physical Personally performed: exam, history, MDM, supervision of care Care discussed with: Medical Student Procedures: n/a Results interpretation: Verified all documentation Verification and Attestation of Medical Student E/M Service A medical student performed and documented this service in my presence. I reviewed and verified all information documented by the medical student and made modifications to such information, when appropriate. I personally performed the physical exam and medical decision making. Jim Nassar, Dec 28, 2020,13:35 MALLY MONTELONGO Dec 28, 2020 06:53 JIM NASSAR DO Dec 28, 2020 13:36
[2020-12-28 08:00] VITALS: BP 120/81
[2020-12-28] MEDS: PANTOPRAZOLE 40 MG (PROTONIX) VIAL IV SCH (08:08)
[2020-12-28] MEDS ORDERED: IRON SUCROSE 200 MG/10 ML (VENOFER) VIAL IV ONE (08:30)
--- NOTE | 2020-12-28 09:40 | Discharge Summary ---
Diagnosis/Chief Complaint Date of Admission Dec 25, 2020 at 22:10 Date of Discharge Discharge Diagnosis Problems/Diagnosis: (1) Syncope Assessment & Plan: - Likely 2/2 to severe anemia, has not had any recurrent episodes since admission 12/27: Doing well, no recurrent episodes Qualifiers: Qualified Codes: R55 - Syncope and collapse Status: Acute (2) GIB (gastrointestinal bleeding) Assessment & Plan: - EGD today, Dr Nassar consulted, appreciate rec ommendations, will discuss with him if he is going to due colonoscopy now or set up as outpatient 12/27: Esophageal strictures and linear ulcers, likely cause of anemia, continue PPI, will get outpatient colonoscopy Qualifiers: Qualified Codes: K92.2 - Gastrointestinal hemorrhage, unspecified Status: Acute (3) Microcytic anemia Assessment & Plan: - Iron studies pending 12/27: IV iron given today Status: Acute (4) Menorrhagia Assessment & Plan: - Recommend WWE as outpatient, patient states that she has not had a pelvic exam with pap for over 10 years Qualifiers: Qualified Codes: N92.0 - Excessive and frequent menstruation with regular cycle Status: Chronic (5) Obesity Qualifiers: Qualified Codes: E66.01 - Morbid (severe) obesity due to excess calories; Z68.42 - Body mass index [BMI] 45.0-49.9, adult Status: Chronic (6) DVT prophylaxis Assessment & Plan: - SCDs, no lovenox 2/2 to severe anemia Status: Acute Chief Complaint/HPI Chief Complaint/HPI 45 yo F that presented with episode of intense dizziness. States that she did not lose consciousness. She has had a significant GI history and was diagnosed with maldonado's esophagus several years ago and has had many EGDs. States that she has never had colonoscopy. Prior to event she was swimming with her family for about 2 hrs. States that she has been well hydrated. She was found to have Hgb 6.8. She states that she does have heavy periods and is on OCP to help control. She otherwise has not had any workup for vaginal bleeding. Denies any female family h/o bleeding disorders or hysterectomies. Denies any chest pain or palpitations during or after episode. Discharge Summary-Simple/Stand Consultations Discharge Physical Examination Allergies: Coded Allergies: No Known Drug Allergies (Unverified , 12/25/20) Vitals & I&Os Vital Sign - Last 12Hours Date Time Temp Pulse Resp B/P (MAP) Pulse Ox O2 Delivery O2 Flow Rate FiO2 12/28/20 08:00 36.4 79 20 120/81 (94) 98 Room Air 12/26/20 07:55 4 Intake and Output 12/28/20 00:00 Intake Total 1102 ml Output Total 3750 ml Balance -2648 ml Hospital Course See final discharge diagnosis. Discharge Instructions to patient/family Please see electronic discharge instructions given to patient. Discharge Medications Reviewed and agree with Discharge Medication list on patient's Discharge Instruction sheet TIM MERIDA MD Dec 28, 2020 09:39
[2020-12-28] MEDS ORDERED: SUCR1TAB PO (09:41)
--- NOTE | 2020-12-28 09:42 | Discharge Summary ---
Discharge [facility] Reconcile Patient Problems Problems Reviewed?: Yes Discharge Medications New, Converted or Re-Newed RX: Transmitted to Pharmacy New Medications: Sucralfate (Sucralfate) 1 Gm Tablet 1 GM PO ACHS, #120 TAB Continued Medications: Albuterol Sulfate (Proair Hfa) 1 Puff Puff 2 PUFF IH Q6H PRN for SHORTNESS OF BREATH, EA Cetirizine HCl (Cetirizine HCl) 10 Mg Tablet 10 MG PO DAILY PRN for ALLERGY SYMPTOMS, TAB Cholecalciferol (Vitamin D3) (Vitamin D3) 10 Mcg Tab.chew 50 MCG PO DAILY, TAB TAKES 5 (10MCG) CHEWABLES DAILY Multivit-Min/Ascorbic/Herb 124 (Airborne Effervescent Pwd Pack) 1 Each Effpowdpkt 1 EACH PO DAILY, EA Omeprazole (Omeprazole) 20 Mg Tab.rap.dr 20 MG PO DAILY PRN for HEARTBURN, EA Zinc Gluconate (Zinc) 30 Mg Tablet 60 MG PO DAILY, TAB.CHEW Patient Instructions Goal/Follow Up Appt: F/u with PCP in 1-[address] Nassar for Colonoscopy Activity & Diet Discharge Diet: Soft Diet, Low Residue Activity as Tolerated: Yes TIM MERIDA MD Dec 28, 2020 09:42
[2020-12-28 11:57] VITALS: BP 138/84
[2020-12-28 16:09] VITALS: BP 114/65
== END 2020-12-28 16:47 | disposition home or self-care (01) ==
LOC: ER FS 18:56 → 4TH 22:10 → UNDOADMOB 22:10 → SDC 22:10 → UNDODISOB 12-28 16:47
PROVIDERS: ATTEND Family Medicine
DX: K22.10 Ulcer of esophagus without bleeding (principal); K25.4 Chronic or unspecified gastric ulcer with hemorrhage; K44.9 Diaphragmatic hernia without obstruction or gangrene; J45.909 Unspecified asthma, uncomplicated; E66.01 Morbid (severe) obesity due to excess calories; D50.9 Iron deficiency anemia, unspecified; N92.0 Excessive and frequent menstruation with regular cycle; R55 Syncope and collapse; I82.409 Acute embolism and thrombosis of unspecified deep veins of unspecified lower extremity; Z20.822 Contact with and (suspected) exposure to COVID-19; Z68.42 Body mass index [BMI] 45.0-49.9, adult; Z79.899 Other long term (current) drug therapy; Z87.19 Personal history of other diseases of the digestive system; Z98.890 Other specified postprocedural states
CPT/HCPCS: 36415; 36430; 43235; 80053 ×2; 82274; 82728; 83540; 83550; 84703; 85007; 85025 ×3; 85027; 85045; 86850; 86900; 86901; 86920; 87081; 87636; 93005; 96374; 99284; G0378; P9016

== ENCOUNTER → 2021-01-17 | Outpatient (CLI) | payer BC ==
[~2021-01-17] VITALS: Ht 162.6 cm; Wt 123.1 kg
[~2021-01-17] MED LIST: CETI10TA17 PO; CHOL400T3 PO; OMEP-401 PO; RT-ALBUINH IH; SUCR1TAB PO; SUCR1TAB36 PO; ZINC30TA2 PO; [UNRECOGNIZED DRUG - CODE] PO
== END ==
LOC: PREOP 06:38
PROVIDERS: ATTEND Surgery
DX: Z01.818 Encounter for other preprocedural examination (principal)

== ENCOUNTER 2021-01-24 10:41 | Day surgery (SDC) | payer BC ==
[~2021-01-24] VITALS: Ht 162.6 cm; Wt 123.0 kg
[~2021-01-24 10:41] MED LIST changes: -SUCR1TAB36 PO
[2021-01-24] MEDS ORDERED: LACTATED RINGERS 1,000 ML IV STA (10:52)
[2021-01-24] MEDS ORDERED: LACTATED RINGERS 1,000 ML IV ONE (10:55)
[2021-01-24] MEDS ORDERED: HURRICAINE EXT TUBE (BENZOCAINE) XX PRN (11:00)
[2021-01-24] MEDS ORDERED: MIDAZOLAM 2 MG/2 ML (VERSED) VIAL ONE (11:09)
[2021-01-24] MEDS ORDERED: PROPOFOL INJECTION 50 ML IV ONE (11:09)
[2021-01-24] MEDS ORDERED: ONDANSETRON 4 MG/2 ML (SDV) Z0FRAN ONE (11:09)
[2021-01-24 11:16] VITALS: BP 139/94
--- NOTE | 2021-01-24 11:39 | Progress Note-Pre Operative ---
Pre-Operative Progress Note H&P Reviewed The H&P was reviewed, patient examined and no changes noted. Date Seen by Provider: Jan 24, 2021 Time Seen by Provider: 11:39 Date H&P Reviewed: Jan 24, 2021 Time H&P Reviewed: 11:39 Pre-Operative Diagnosis: gerd, hx stricture esophagus, screening colonoscopy JIM CASTORENA DO Jan 24, 2021 11:39
[2021-01-24] MEDS ORDERED: proPOfol 200 MG/20 ML (DIPRIVAN) VIAL IV ONE (12:05)
[2021-01-24 12:25] VITALS: BP 94/55
[2021-01-24 12:30] VITALS: BP 108/56
--- NOTE | 2021-01-24 12:34 | Anesthesia-General Post-Op ---
MAC Patient Condition Mental Status/LOC: Same as Preop Cardiovascular: Satisfactory Nausea/Vomiting: Absent Respiratory: Satisfactory Pain: Controlled Complications: Absent Post Op Complications Complications None Follow Up Care/Instructions Patient Instructions None needed. Anesthesiology Discharge Order Discharge Order Patient is doing well, no complaints, stable vital signs, no apparent adverse anesthesia problems. LASHELL WOODY DO Jan 24, 2021 12:34
[2021-01-24] MEDS ORDERED: SUCR1TAB36 PO (12:55)
--- NOTE | 2021-01-24 12:55 | Discharge Inst-Simple/Standard ---
Discharge Inst-Standard Discharge Medications New, Converted or Re-Newed RX: Transmitted to Pharmacy Patient Instructions/Follow Up Plan of Care/Instructions/FU: 2 weeks [place] Activity as Tolerated: Yes Discharge Diet: Regular Diet JIM CASTORENA DO Jan 24, 2021 12:55
--- NOTE | 2021-01-24 13:02 | Progress Note-Post Operative ---
Post-Operative Progess Note Surgeon (s)/Supervisor [employer] (s) Surgeon JIM CASTORENA DO Supervisor [employer]: na Pre-Operative Diagnosis gerd, hx stricture esophagus, screening colonoscopy Post-Operative Diagnosis esophageal linear, esophageal stricture, diverticulosis Procedure & Operative Findings Date of Procedure 01/24/21 Procedure Performed/Findings esophagoscopy c dilation to 10mm, colonoscopy Anesthesia Type per [facility] Estimated Blood Loss Estimated blood loss (mL): scant Specimens/Packing Specimens Removed na JIM CASTORENA DO Jan 24, 2021 13:02
[2021-01-24 13:10] VITALS: BP 111/71
[2021-01-24 13:20] VITALS: BP 111/71
--- NOTE | 2021-01-25 01:40 | OPERATIVE REPORT ---
DATE OF SERVICE: 01/24/2021 PREOPERATIVE DIAGNOSES: History of esophageal stricture, history of esophageal ulceration, screening colonoscopy. POSTOPERATIVE DIAGNOSES: Linear ulceration, esophageal stricture, diverticulosis. PROCEDURE: Esophagoscopy with dilatation to 10 mm and colonoscopy. SURGEON: Jim Nassar DO ANESTHESIA: Per MDA. ESTIMATED BLOOD LOSS: Scant. COMPLICATIONS: None. INDICATIONS: The patient is a 45-year-old female with history of chronic stricture. She has had multiple dilatations. She had to have EGD performed due to anemia at previous hospitalization. This is for reexamination. The patient understands risks and benefits and wishes to proceed. Consent was signed in the chart. DESCRIPTION OF PROCEDURE: The patient was taken to the endoscopy suite, placed in left lateral recumbent position. Timeout was performed. Scope was inserted in mouth, down the esophagus. Linear ulcerations just proximal to a stricture were noted. This had some slight scant bleeding present. The stricture was then able to be passed with the gastroscope. At this time, a balloon was inserted through the gastroscope for dilatation. This was able to be dilated to 10 mm. The patient started having some bleeding from the site of the stricture; therefore, did not continue with any further dilatation or scope. Scope was then slowly retracted back until completely removed, noting no other pathology. Digital rectal exam was performed noting no palpable polyps, masses or ulcerations. Scope was inserted in the rectum and advanced all the way to cecum with minimal difficulty. Prep was adequate. Scope was then slowly retracted back. There were no polyps, masses or ulcerations within the cecum, ascending, transverse, descending and sigmoid colon. In the sigmoid colon, some diverticulosis present. Scope was then slowly retracted back to the rectum, where it was also retroflexed noting no other pathology. Scope was returned to its normal position, slowly withdrawn until completely removed. The patient tolerated procedure well without any complications. She was taken to recovery room in stable condition. RECOMMENDATIONS: The patient will recommend high fiber diet due to diverticulosis. We will recommend repeat colonoscopy in 10 years unless family history of colon cancer, which would be 5 years or personal history of polyps. If any changes before that, we would recommend repeat colonoscopy. The patient will follow up in the office. We will add Carafate 1 gram four times a day. The patient will follow up in office. Job ID: [id number] DocumentID: [id number] Dictated Date: 01/24/2021 21:06:32 Dye Lab Technician Date: 01/25/2021 01:39:16 Dictated By: JIM NASSAR DO
== END 2021-01-24 13:20 | disposition home or self-care (01) ==
LOC: ENDO 10:41
PROVIDERS: ATTEND Surgery
DX: Z12.11 Encounter for screening for malignant neoplasm of colon (principal); K22.2 Esophageal obstruction; K57.30 Diverticulosis of large intestine without perforation or abscess without bleeding; K22.10 Ulcer of esophagus without bleeding; J45.909 Unspecified asthma, uncomplicated; K21.9 Gastro-esophageal reflux disease without esophagitis; E66.01 Morbid (severe) obesity due to excess calories; K44.9 Diaphragmatic hernia without obstruction or gangrene; D50.0 Iron deficiency anemia secondary to blood loss (chronic); Z79.899 Other long term (current) drug therapy; Z79.891 Long term (current) use of opiate analgesic; Z79.1 Long term (current) use of non-steroidal anti-inflammatories (NSAID); Z68.42 Body mass index [BMI] 45.0-49.9, adult; Z87.891 Personal history of nicotine dependence
CPT/HCPCS: 84703